=== PATIENT | female | born 1990 | race Caucasian/White ===

== ENCOUNTER 2019-02-02 13:52 | Emergency (ER) | payer OTHER ==
[~2019-02-02] VITALS: Ht 172.7 cm; Wt 65.8 kg
[2019-02-02 13:56] VITALS: BP 104/69
[2019-02-02] MEDS ORDERED: NAPROSYN500 MG PO (14:58)
[2019-02-02] MEDS ORDERED: MEDROLDOSEPACK PO (15:07)
== END 2019-02-02 15:22 | disposition home or self-care (01) ==
LOC: M.ERS 13:52
DX: M25.461 Effusion, right knee (principal); M06.9 Rheumatoid arthritis, unspecified; Z91.040 Latex allergy status